=== PATIENT | male | born 1985 | race Caucasian/White ===

== ENCOUNTER → 2020-04-13 | Day surgery (SDC) | payer OTHER ==
[~2020-04-13] MED LIST: ABILIFY15 MG PO; BACTRIM DS TAB1 EACH PO; CLEOCIN HCL150 MG PO; DIVALPROEX SOD250 MG PO; KEFLEX500 MG PO; NORCO 5-325 TA1 EAC1 PO; NORCO 5-325 TA1 EACH PO; TRAZODONE HCL100 MG PO
--- NOTE | ~2020-04-13 | OP ---
[facility] [address] [place] [address] OPERATIVE REPORT Name: NIKKY AGOSTO Room: [facility].#: [id number] Admission: 04/13/20 Attend Phys: Rafael Barker Discharge: Date of : 85 Report #: [id number] THIS REPORT FOR: //name// cc: YAYA Becker family physician/PCP YAYA - Rosita family physician/PCP ~ THIS REPORT FOR: //name// CC: [facility] physician/PCP Rafael Barker DATE OF SERVICE: 04/13/2020 PREOPERATIVE DIAGNOSIS: Left arm foreign body. POSTOPERATIVE DIAGNOSIS: Left arm foreign body. OPERATION: Excision of foreign body from left upper arm. SURGEON: Rafael Barker MD ANESTHESIA: General. ESTIMATED BLOOD LOSS: Minimal. SPECIMEN: Left arm foreign body. DESCRIPTION OF PROCEDURE: After informed consent was obtained, the patient was brought to the operating room and placed supine. SCDs were placed and working, preoperative antibiotics were administered, general anesthesia was induced. The left forearm was prepped and draped in the usual sterile fashion. I made an approximately 3 x 2 cm elliptical incision just above the left elbow. The skin was excised. Cautery dissection was used to dissect down to the muscle. Fluoroscopy was used to find the needle. This was approximately 0.6 cm long tip of the needle. I was able to identify the needle and remove it from the left bicep muscle. The skin was then reapproximated with interrupted 2-0 nylon suture after the wound was copiously irrigated with normal saline. Sterile dressings were applied. COMPLICATIONS: None. DISPOSITION: The patient was taken to recovery in satisfactory condition. By: [id number] guadalupe Barker MD /luz maria
[2020-04-13 07:40] LABS: CALCIUM 8.5 mg/dL (8.5-10.1); CREATININE 1.1 mg/dL (0.6-1.3); POTASSIUM 3.8 mmol/L (3.5-5.1)
--- NOTE | 2020-04-14 18:06 | PATH ---
[facility] [address] [place] [address] PATHOLOGY RPT PROCEDURE Name: NIKKY AGOSTO Room: [facility].#: [id number] Admission: 04/13/20 Date of : 85 Discharge: Report #: [id number] Path Case #: [id number] [facility] Accession Number: [id number] . 01 Material submitted: . arm - LEFT ARM FOREIGN BODY. Modifiers: left . 01 Clinical history: . Foreign body . 02 Diagnosis: Left arm foreign body: - Fragments of benign skeletal muscle, without foreign body identified. See comment. (OLGA:mmmaurilio; 04/14/2020) [facility] 04/14/2020 1620 Local . 02 Comment: Discussed with Dr. Barker on afternoon of 04/14/2020. . 02 Electronically signed: . Dmitry Bullock MD, Pathologist NPI- [id number] . 01 Gross description: . The specimen is received in saline, labeled "Nikky Agosto, left ARM foreign body". Received are two segments of pale casey possible tissue measuring 0.5 x 0.2 x 0.1 cm in aggregate dimensions. Foreign material is not identified. The specimen is filtered and entirely submitted in cassette A1. ([facility]; 04/13/2020) . After initial endoscopic examination, the specimen container is re-examined. Upon careful examination of the specimen container, no foreign body is identified. A second PA has verified that there is no foreign body within the container. ([facility]; 04/14/2020) QAC/QAC 04/14/2020 1620 Local . 02 Pathologist provided ICD-10: Z03.89 . 02 CPT . 508875 Specimen Comment: A courtesy copy of this report has been sent to [phone] Specimen Comment: Report sent to Performed at: [address] [place] [address] PATHOLOGY RPT PROCEDURE Name: NIKKY AGOSTO Room: [facility]#: [id number] Admission: 04/13/20 Date of : 85 Discharge: Report #: [id number] Path Case #: [id number] [address] [address], [place], [place] [id number] MD Eduardo Johnson MD Phone: [phone] Performed at: [address] [facility] [place] [address] [place], [place] [id number] MD Dmitry Bullock MD Phone: [phone]
== END | disposition home or self-care (01) ==
LOC: M.SUR 05:34 → M.LAB 07:26 → M.SUR 07:27
PROVIDERS: Anesthesiology; ATTEND Surgery
DX: S40.852A Superficial foreign body of left upper arm, initial encounter (principal); Z03.89 Encounter for observation for other suspected diseases and conditions ruled out; Z11.59 Encounter for screening for other viral diseases; Z87.891 Personal history of nicotine dependence; Z79.899 Other long term (current) drug therapy; X58.XXXA Exposure to other specified factors, initial encounter; Y93.89 Activity, other specified; Y92.89 Other specified places as the place of occurrence of the external cause; Y99.8 Other external cause status

== ENCOUNTER 2020-06-19 01:10 | Emergency (ER) | payer OTHER ==
[~2020-06-19] VITALS: Ht 175.3 cm; Wt 97.5 kg
[2020-06-19 01:15] VITALS: BP 141/93
== END 2020-06-19 01:29 | disposition home or self-care (01) ==
LOC: M.ERS 01:10
DX: F15.10 Other stimulant abuse, uncomplicated (principal); F17.210 Nicotine dependence, cigarettes, uncomplicated; Z88.8 Allergy status to other drugs, medicaments and biological substances